=== PATIENT | male | born 1940 | race African-American/Black ===

== ENCOUNTER → 2020-10-13 | Outpatient (CLI) | payer MEDICARE ==
[2019-09-12 10:43] VITALS: BP 131/77
[~2020-10-13] MED LIST: AMLO2.5T2 PO; ASPI-886 PO; ATOR40TA59 PO; CLOP75TA PO; DORZ1DRO5 OS; METO25TA4 PO; TRAV5DRO OU; TRIA1CAP3 PO
--- NOTE | 2020-10-13 18:50 | CARD ---
MR#: [id number] Date of Study: 10/13/2020 Ordering Physician: SYED CARNEY, Referring Physician: SYED CARNEY, Tech: Monica Black [facility] APPROVED REPORT EXAM: Two-dimensional and M-mode echocardiogram with Doppler and color Doppler. Other Information Quality : AverageHR: 59bpm Rhythm : NSR INDICATION Cardiac Disease: CAD RISK FACTORS Hypertension Smoking 2D DIMENSIONS RVDd3.3 (2.9-3.5cm)Left Atrium(2D)3.2 (1.6-4.0cm) IVSd1.2 (0.7-1.1cm)Aortic Root(2D)3.8 (2.0-3.7cm) LVDd4.2 (3.9-5.9cm)LVOT Diameter2.4 (1.8-2.4cm) PWd1.0 (0.7-1.1cm)LVDs3.0 (2.5-4.0cm) FS (%) 28.7 %SV44.4 ml LVEF(%)55.6 (>50%) Aortic Valve AoV Peak Amador.95.3cm/sAoV VTI20.1cm AO Peak GR.3.6mmHgLVOT Peak Amador.89.4cm/s AO Mean GR.1mmHgAVA (VMAX)4.34cm2 Mitral Valve MV E Eksvfyof58.4cm/sMV DECEL [id number] MV A Xkbbsktm15.9cm/sE/A Ratio0.8 Pulmonary Valve PV Peak Hclkjmim62.4cm/s Tricuspid Valve TR P. Qzuwsylf558cs/sTR Peak Gr.23mmHg LEFT VENTRICLE The left ventricle is normal size. There is mild concentric left ventricular hypertrophy. The left ve ntricular systolic function is normal and the ejection fraction is within normal range. Estimated eje ction fraction 60-65%. There is normal LV segmental wall motion. Transmitral Doppler flow pattern is Grade I-abnormal relaxation pattern. RIGHT VENTRICLE The right ventricle is normal size. There is normal right ventricular wall thickness. The right ventr icular systolic function is normal. ATRIA The left atrium size is normal. The right atrium size is normal. The interatrial septum is intact wit h no evidence for an atrial septal defect or patent foramen ovale as noted on 2-D or Doppler imaging. AORTIC VALVE The aortic valve is normal in structure and function. Doppler and Color Flow revealed mild aortic reg urgitation. There is no significant aortic valvular stenosis. MITRAL VALVE The mitral valve is normal in structure and function. There is no evidence of mitral valve prolapse. There is no mitral valve stenosis. Doppler and Color-flow revealed mild mitral regurgitation. TRICUSPID VALVE The tricuspid valve is normal in structure and function. Doppler and Color Flow revealed mild tricusp id regurgitation. Estimated PAP 26 mmHg. There is no tricuspid valve stenosis. PULMONIC VALVE Doppler and Color Flow revealed moderate pulmonic valvular regurgitation. There is no pulmonic valvul ar stenosis. GREAT VESSELS The aortic root is normal in size. The IVC is normal in size and collapses >50% with inspiration. PERICARDIAL EFFUSION There is no evidence of significant pericardial effusion. Critical Notification Critical Value: No <Conclusion> The left ventricular systolic function is normal and the ejection fraction is within normal range. Es timated ejection fraction 60-65%. There is normal LV segmental wall motion. Signed by : Syed Carney, Electronically Approved : 10/13/2020 18:49:54
== END ==
LOC: ECHO 13:15
PROVIDERS: ATTEND Internal Medicine Cardiovascular Disease
DX: I08.8 Other rheumatic multiple valve diseases (principal); I25.10 Atherosclerotic heart disease of native coronary artery without angina pectoris
CPT/HCPCS: 93306

== ENCOUNTER → 2021-06-14 | Outpatient (CLI) | payer MEDICARE ==
[2019-09-12 10:43] VITALS: BP 131/77
--- NOTE | 2021-06-14 17:10 | RAD ---
MR#: [id number] Date of Study: 06/14/2021 Ordering Physician: SONY CARNEY, Referring Physician: SONY CARNEY, Tech: Ayaan Diaz MBA, RDMS, RVT, RDCS, RTR APPROVED REPORT Patient Location: OUT-PATIENT Indications TOBACCO ABUSE Duplex Results A/PTransverseLongitudinal Proximal Aorta 2.6cm2.6cm Mid Aorta 2.1cm1.8cm Distal Aorta 2.0cm1.2cm Rt. Common Iliac Artery1.6cm Lt. Common Iliac Artery 1.5cm Doppler VelocityWaveform Proximal Aorta 86.0 cm/sec Aorta Mid. 102.0 cm/sec Distal Aorta 96.0 cm/sec Rt. Common Iliac Svokij096.0 cm/sec Lt. Common Iliac Artery 92.0 cm/sec Findings Grayscale images of the abdominal aorta are notable for moderate diffuse atherosclerosis. No obvious abdominal aortic aneurysm identified. Bilateral common iliac arteries do not demonstrate any signif icant occlusive disease Critical Notification Critical Value: No <Conclusion> 1. No significant abdominal aortic aneurysm Signed by : Sony Carney, Electronically Approved : 06/14/2021 17:09:54
--- NOTE | 2021-06-15 09:44 | RAD ---
MR#: [id number] Date of Study: 06/14/2021 Ordering Physician: SONY PERDOMO, Referring Physician: BULMARO JIM Tech: RT Elbert (R) (N) APPROVED REPORT Test Type: Exercise Stress Nurse/Tech: Prasanth Lofton RN Test Indications: CAD Cardiac History: [place] 2019, HTN, x-smokers Medications: See Electronic Medical Record Medical History: See Electronic Medical Record Resting ECG: SR Resting Heart Rate: 65 bpm Resting Blood Pressure: 149/84mmHg Pretest Chest Pain: None Nurse/Tech Notes Lungs CTA, S1S2 Consent: The procedure was explained to the patient in lay terms. Informed consent was witnessed. Barrera eout was entered into [employer]. History and Stress Test performed by RT Elbert (R) (N) Stress Symptoms No chest pain or symptoms. POST EXERCISE Reason for Termination: Reached target heart rate Target HR: Yes % of Maximum Predicted HR: 119 bpm Exercise duration: 4:00 min:sec, 2 Stage Max Blood Pressure: 182/85mmHg Blood Pressure response to exercise: Normal blood pressure response during stress. Heart Rate response to exercise: normal response Chest Pain: No. Arrhythmia: No. ST Change: Yes. ST depresssion noted in various leads INTERPRETATION Stress EKG Conclusion: Mild inferolateral ST segment depression at peak stress. Suggestive of endocar dial ischemia but not conclusive. Imaging Protocol IMAGE PROTOCOL: Rest Tc-99m/stress Tc-99m 1 day Rest: Stress: Viability: Radiopharm.Tc99m ShwdcrfieJz85w Sestamibi Dose10.5mCi 32mCi Duration 15min. 10min. Img Date 06/14/2021 06/14/2021 Inj-Img Afvr71ups. 60min. Rest Admin Site:IV - Right AntecubitalAdministrator:RT Elbert (R)(N) Stress Admin Site: IV - Right AntecubitalAdministrator: GRACY Holt, ARRT (R)(N) STRESS DATA End Diast. Vol.100.0mlAv. Heart Rate84.0bpm End Syst. Vol.27.0mlCO Index BSA0.0L/min Myocardial Lbip531.0gEject. Nfxekkdz52.0% Stress Rates Pk. Fill Rate4.25EDV/secLVtime Pk. Fill 201.26msec Pk. Empty Rate4.72ESV/secLVtime Pk. Ofpft329.93msec / Pk. Fill1.08EDV/sec Stress Scores Regional WT0.00Summed WT7.00 Regional WM0.00Summed WM0.00 LV Perfusion There is a small to moderate sized reversible lateral wall defect suggestive of ischemia in the LCx t erritory. Wall Motion Grossly normal wall motion. EF 55% LV Perf. Quant 17 Seg. SSS8.00 17 Seg. SRS1.00 17 Seg. SDS7.00 Stress Defect Extent (% LAD)0.00Rest Defect Extent (% LAD)0.00Rev. Defect Extent (% LAD)0.00 Stress Defect Extent (% LCX) 68.80Rest Defect Extent (% LCX)42.50Rev. Defect Extent (% LCX)36.30 Stress Defect Extent (% RCA)0.00Rest Defect Extent (% RCA)0.00Rev. Defect Extent (% RCA)0.00 Stress Defect Extent (% AUREA)12.00Rest Defect Extent (% AUREA)7.40Rev. Defect Extent (% AUREA)6.30 Other Information Quality:Average Risk Assessment: Moderate Risk Conclusion 1. Mildly abnormal EKG suggestive of lateral ischemia. 2. Reversible lateral wall perfusion defect suggestive of ischemia in the LCx territory. 3. Normal EF at > 70% 4. Moderate risk study Recommendations Patient has known Ramus subtotal occlusion, given mild ischemia and preserved EF, continue medical mg mt. Signed by : Sony Perdomo, Electronically Approved : 06/15/2021 09:44:21
== END ==
LOC: NM 08:43
PROVIDERS: ATTEND Internal Medicine Cardiovascular Disease
DX: R94.31 Abnormal electrocardiogram [ECG] [EKG] (principal); I70.0 Atherosclerosis of aorta; I25.10 Atherosclerotic heart disease of native coronary artery without angina pectoris; Z72.0 Tobacco use
CPT/HCPCS: 76770; 78452; 93017; A9500